=== PATIENT | female | born 1940 | race African-American/Black ===

== ENCOUNTER 2017-03-04 21:08 | Emergency (ER) | payer OTHER ==
[~2017-03-04 21:08] MED LIST: BAY PO; HCTZ/LISINOPRIL1 TA1 PO; LANTUS SOLOS100 U/M1 SQ; METFORMIN850 M1 PO; NEXIUM40 MG PO; ONGLYZA5 M1 PO; POTASSIUM CHLO10 MEQ PO; PRI20 PO; TEN50 PO; V10 PO; ZOC20 PO
[2017-03-04 21:57] LABS: BASOPHIL % 0.3 % (0-2); PLATELET COUNT 253 x10^3mcL (130-400)
[2017-03-04 22:02] LABS: RED CELL DISTRIBUTION WIDTH 14.6 % (11.5-14.5)
[2017-03-04 22:09] LABS: CALCIUM 9.2 mg/dL (8.5-10.1); CHLORIDE SERUM 106 mmol/L (98-107); CREATININE SERUM 1.2 mg/dL (0.6-1.0); GLUCOSE SERUM 214 mg/dL (74-106); SODIUM SERUM 141 mmol/L (136-145)
[2017-03-04 22:14] LABS: ALBUMIN 3.5 g/dL (3.4-5.0); ALKALINE PHOSPHATASE 79 U/L (46-116); ALT/SGPT 24 U/L (14-59); AST/SGOT 20 U/L (15-37); BILIRUBIN TOTAL 0.1 mg/dL (0.20-1.00); TOTAL PROTEIN, SERUM 6.9 g/dL (6.4-8.2)
[2017-03-04 22:27] LABS: CK-MB 3.1 ng/mL (0-3.6)
[2017-03-04 22:49] VITALS: BP 122/77
== END 2017-03-04 22:49 | disposition home or self-care (01) ==
LOC: ED 21:08
PROVIDERS: Emergency Medicine
DX: J20.9 Acute bronchitis, unspecified (principal); I10 Essential (primary) hypertension; E11.9 Type 2 diabetes mellitus without complications; Z79.84 Long term (current) use of oral hypoglycemic drugs; Z79.899 Other long term (current) drug therapy
CPT/HCPCS: 36415; 83880; J7613; Q0092

== ENCOUNTER 2018-03-03 21:39 | Emergency (ER) | payer OTHER ==
[2018-03-03 23:59] VITALS: BP 143/80
== END 2018-03-03 23:59 | disposition home or self-care (01) ==
LOC: ED 21:39
PROC: 3E0234Z Introduction of Serum, Toxoid and Vaccine into Muscle, Percutaneous Approach (ICD-10-PCS; principal; 2018-03-03)
DX: T24.232A Burn of second degree of left lower leg, initial encounter (principal); T31.0 Burns involving less than 10% of body surface; X08.8XXA Exposure to other specified smoke, fire and flames, initial encounter; Y92.9 Unspecified place or not applicable
CPT/HCPCS: 90715

== ENCOUNTER 2020-02-29 19:44 | Emergency (ER) | payer OTHER, MEDICAID, SELFPAY ==
[~2020-02-29] VITALS: Ht 170.2 cm; Wt 61.2 kg
[2020-02-29 19:49] VITALS: Ht 170.2 cm; Wt 61.2 kg
[2020-02-29 23:05] VITALS: BP 182/70
== END 2020-02-29 23:05 | disposition home or self-care (01) ==
LOC: ED 19:44
DX: R05 Cough (principal); I10 Essential (primary) hypertension; E11.9 Type 2 diabetes mellitus without complications; E78.00 Pure hypercholesterolemia, unspecified; K21.9 Gastro-esophageal reflux disease without esophagitis; Z20.828 Contact with and (suspected) exposure to other viral communicable diseases
CPT/HCPCS: U0003-CS

== ENCOUNTER 2020-09-23 12:39 | Emergency (ER) | payer OTHER ==
[~2020-09-23] VITALS: Ht 170.2 cm; Wt 59.0 kg
[2020-09-23 12:49] VITALS: Ht 170.2 cm; Wt 59.0 kg
[2020-09-23 13:19] LABS: BASOPHIL % 1.3 % (0.2-1.3); PLATELET COUNT 224 x10^3mcL (179-408); RED CELL DISTRIBUTION WIDTH 14.3 % (12.3-17.7)
[2020-09-23 13:36] LABS: CALCIUM 9.4 mg/dL (8.5-10.1); CARBON DIOXIDE 30.3 mmol/L (21-32); CHLORIDE SERUM 98 mmol/L (98-107); CREATININE SERUM 1.3 mg/dL (0.6-1.0); GLUCOSE SERUM 435 mg/dL (74-106); POTASSIUM SERUM 3.9 mmol/L (3.5-5.1); SODIUM SERUM 137 mmol/L (136-145)
[2020-09-23 13:40] LABS: ALBUMIN 3.7 g/dL (3.4-5.0); ALKALINE PHOSPHATASE 81 U/L (46-116); ALT/SGPT 27 U/L (14-59); AST/SGOT 17 U/L (15-37); BILIRUBIN TOTAL 0.2 mg/dL (0.20-1.00)
[2020-09-23 16:52] VITALS: BP 143/65
== END 2020-09-23 16:52 | disposition home or self-care (01) ==
LOC: ED 12:39
PROVIDERS: Emergency Medicine
DX: R00.2 Palpitations (principal); R07.89 Other chest pain; I10 Essential (primary) hypertension; E11.9 Type 2 diabetes mellitus without complications; E78.00 Pure hypercholesterolemia, unspecified; K21.9 Gastro-esophageal reflux disease without esophagitis
CPT/HCPCS: 83880